=== PATIENT | female | born 1980 | race Caucasian/White ===

== ENCOUNTER 2025-05-21 17:40 | Emergency (ER) | payer SELFPAY ==
[2025-05-21 18:01] VITALS: BP 164/96
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
[2025-05-21 18:05] VITALS: BMI 35.2
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
[2025-05-21] MEDS: MOTRIN 600 MG PO (19:26)
== END 2025-05-21 19:28 | disposition home or self-care (01) ==
LOC: EMR 17:40
PROVIDERS: EMERGENCY PHYSICIAN Student in an Organized Health Care Education/Training Program
DX: Z04.89 Encounter for examination and observation for other specified reasons (principal); Y09 Assault by unspecified means; R03.0 Elevated blood-pressure reading, without diagnosis of hypertension; F20.9 Schizophrenia, unspecified; J45.909 Unspecified asthma, uncomplicated; F17.200 Nicotine dependence, unspecified, uncomplicated
CPT/HCPCS: 99283; 73110